=== PATIENT | male | born 1990 | race Caucasian/White ===

== ENCOUNTER 2017-08-04 10:18 | Day surgery (SDC) | payer BC ==
[~2017-08-04] VITALS: Ht 188 cm; Wt 78.8 kg
[~2017-08-04 10:18] MED LIST: NO HOME MEDICATIONS; NORCO 325 MG-51 TAB PO; NORCO 325 MG-7.1 TAB PO; ULTRAM 50MG TAB50 MG PO; VENTOLIN0.09 MG IH
[2017-08-04 11:06] VITALS: BP 126/73; PULSE 58; TEMP 98.4
[2017-08-04 14:09] VITALS: BP 123/66; PULSE 64; TEMP 97.4
[2017-08-04 14:22] VITALS: TEMP 97
[2017-08-04 14:25] VITALS: BP 108/74; PULSE 64
[2017-08-04 14:40] VITALS: BP 121/59; PULSE 78
[2017-08-04 14:55] VITALS: BP 114/68; PULSE 58
== END 2017-08-04 15:45 | disposition home or self-care (01) ==
LOC: SDCO 10:18
DX: K40.90 Unilateral inguinal hernia, without obstruction or gangrene, not specified as recurrent (principal); F17.220 Nicotine dependence, chewing tobacco, uncomplicated
CPT/HCPCS: A4315; C1781; J0690; J1100; J1885; J2250; J2405; J2704; J2710; J3010; J7120

== ENCOUNTER 2020-01-02 03:03 | Emergency (ER) | payer BC ==
[~2020-01-02] VITALS: Ht 185.4 cm; Wt 81.8 kg
[2020-01-02 03:08] VITALS: BP 111/74; TEMP 98.6
[2020-01-02] MEDS ORDERED: CEPHALEXIN500 M1 PO (05:15)
[2020-01-02 05:45] VITALS: PULSE 74
== END 2020-01-02 05:45 | disposition home or self-care (01) ==
LOC: COL.ER 03:03
DX: S60.221A Contusion of right hand, initial encounter (principal); S00.81XA Abrasion of other part of head, initial encounter; W10.9XXA Fall (on) (from) unspecified stairs and steps, initial encounter; Z23 Encounter for immunization